=== PATIENT | female | born 1975 | race Caucasian/White ===

== ENCOUNTER 2016-08-21 21:17 | Emergency (ER) | payer BC, OTHER ==
[~2016-08-21] VITALS: Ht 162.6 cm; Wt 62.6 kg
[2016-08-21 21:21] VITALS: TEMP 37.4; Ht 162.6 cm; Wt 62.6 kg
[2016-08-21] MEDS ORDERED: SODIUM CHLORIDE 0.9% 1000ML 1,000 ML IV STA ×2 (21:39)
[2016-08-21] MEDS ORDERED: MoRPHine SULFATE 4 MG/ML 1 ML CARP\\VIAL IV STA (21:39)
[2016-08-21] MEDS ORDERED: ONDANSETRON INJ 2 MG/ML 2 ML VIAL IV STA (21:39)
[2016-08-21] MEDS ORDERED: BCPILLS PO (21:41)
[2016-08-21 22:00] VITALS: O2SAT 97
[2016-08-21 22:33] LABS: BASO % 0.2 %; BASO ABS # 0.04 K/uL (0-0.2); COMPLETE YES; EOS % 0.5 %; HEMATOCRIT 40.3 % (37-47); IG% 0.3 %; LYMPH % 6.4 %; LYMPH ABS # 1.35 K/uL (1.2-3.4); MEAN CELL VOLUME 94.6 fL (80-100); MEAN CORPUSCULAR HEMOGLOBIN 33.6 pg (25-34); MEAN CORPUSCULAR HGB CONC 35.5 g/dl (32-36); MEAN PLATELET VOLUME 9.6 fL (7.4-10.4); MONO % 12.1 %; NEUT % 80.5 %; PLATELET COUNT 290 K/uL (130-400); RED BLOOD COUNT 4.26 M/uL (4.2-5.4); WHITE BLOOD COUNT 21.04 K/uL (4.8-10.8)
[2016-08-21 22:34] LABS: URINE APPEARANCE CLEAR (CLEAR); URINE BILIRUBIN NEG (NEG); URINE COLOR YELLOW; URINE NITRITE NEG (NEG); URINE SPECIFIC GRAVITY 1.009 (1.000-1.030); UROBILINOGEN NEG (NEG); ZZUR CULT IF INDIC CLEAN CATCH NO
[2016-08-21 22:35] LABS: REVIEW REQ? NO
[2016-08-21 22:36] LABS: MANUAL MICROSCOPIC REQUIRED? NO
[2016-08-21 22:48] LABS: ALT/SGPT 20 U/L (12-78); BLOOD UREA NITROGEN 13 mg/dl (7-18); BUN/CREATININE RATIO 16.2 (10-20); CALCIUM 9.9 mg/dl (8.5-10.1); CARBON DIOXIDE 25 mmol/L (21-32); CHLORIDE 101 mmol/L (98-107); CREATININE 0.77 mg/dl (0.60-1.20); GLUCOSE 146 mg/dl (70-99); POTASSIUM 3.6 mmol/L (3.5-5.1); SODIUM 139 mmol/L (136-145)
[2016-08-21 22:51] LABS: ALKALINE PHOSPHATASE 55 U/L (45-117); AST/SGOT 19 U/L (15-37)
[2016-08-21 22:58] LABS: PREG INTERNAL NEGATIVE QC NEG CLEAR BACKGROUND; PREG INTERNAL POSITIVE QC POS CONTROL LINE
--- NOTE | 2016-08-21 23:00 | DIAGNOSTIC IMAGING REPORT ---
ABDOMINAL ULTRASOUND, RIGHT UPPER QUADRANT HISTORY: Right upper quadrant abdominal pain.. COMPARISON: None. FINDINGS: Pancreas: The pancreas demonstrates a normal echotexture. Liver: Unremarkable. Gallbladder: No gallbladder wall thickening. No gallstones. CBD: 5 mm. Right kidney: No hydronephrosis. IMPRESSION: No significant abnormality identified within the right upper quadrant. Electronically signed by: Hector Dalton M.D. 08/21/2016 10:58 PM Dictated Date/Time: 08/21/2016 10:57 PM
[2016-08-21] MEDS ORDERED: OPTIRAY 320 IV PRN (23:15)
[2016-08-22] MEDS ORDERED: METRONIDAZOLE 250 MG TAB PO STA ×2 (02:13→02:16)
[2016-08-22] MEDS ORDERED: CIPROFLOXACIN 500 MG TAB PO STA (02:13)
--- NOTE | 2016-08-22 02:15 | EMERGENCY ROOM VISIT NOTE ---
History First contact with patient: 21:35 Chief Complaint: ABDOMINAL PAIN Stated Complaint: RUQ ABDOMINAL PAIN, NAUSEA Nursing Triage Summary: patient with nausea and right sided abdominal pain for three days. with decreased appetite and general malaise. pain with standing and rebound tenderness with palpation. History of Present Illness The patient is a 41 year old female who presents to the Emergency Room with complaints of nausea and right upper abdominal pain for the past day. Symptoms started last night. She describes the pain as aching, ranging in severity 5 out of 10 worse with eating and better with rest. Patient denies chest pain, dyspnea, fever, chills, vomiting, diarrhea, back pain, urinary symptoms. Patient had a colonoscopy June 2016 and was normal per patient. Review of Systems See HPI for pertinent positives & negatives. A total of 10 systems reviewed and were otherwise negative. Past Medical/Surgical History Breast augmentation Social History Smoking Status: Former Smoker Drug Use: none Marital Status: Housing Status: lives with family Current/Historical Medications Scheduled Control Pills ( Control Pills), 1 TAB PO DAILY Ciprofloxacin Hcl (Cipro), 500 MG PO BID Metronidazole (Flagyl), 500 MG PO TID Allergies Coded Allergies: No Known Allergies (Unverified , 08/21/16) Physical Exam Vital Signs Date Time Temp Pulse Resp B/P Pulse Ox O2 Delivery O2 Flow Rate FiO2 08/22/16 02:15 96 08/22/16 01:35 95 18 110/71 98 Room Air 08/21/16 23:54 107 18 106/77 98 Room Air 08/21/16 23:01 96 20 132/86 99 Room Air 08/21/16 22:06 109 08/21/16 22:01 110 20 117/68 98 Room Air 08/21/16 22:00 97 Room Air 08/21/16 21:21 37.4 121 20 120/81 97 Physical Exam VITALS: Vitals are noted on the nurse's note and reviewed by myself. Vital signs stable. GENERAL: Pleasant female, in no acute distress, nondiaphoretic, well-developed well-nourished. SKIN: The skin was without rashes, erythema, edema, or bruising. There is no tenting of the skin. Capillary reflex less than 2 seconds. HEAD: Normocephalic atraumatic. EARS: External auditory canals clear, tympanic membranes pearly burns without erythema or effusion bilaterally. EYES: Pupils equal round and reactive to light and accommodation. Conjunctivae without injection, sclerae without icterus. Extraocular movements intact. NOSE: Patent, turbinates without inflammation or discharge. MOUTH: Mucous membranes moist. Pharynx without erythema or exudate. Uvula midline. Airway patent. Tongue does not deviate. NECK: Supple without nuchal rigidity. No lymphadenopathy. No thyromegaly. Cervical spine is nontender. No JVD. HEART: Regular rate and rhythm without murmurs gallops or rubs. LUNGS: Clear to auscultation bilaterally without wheezes, rales or rhonchi. No dullness to percussion. No retractions or accessory muscle use. ABDOMEN: Positive bowel sounds x 4. Normal tympanic percussion. Soft, tender to palpation right upper quadrant, without masses or organomegaly. No CVA tenderness. No guarding or rebound tenderness. MUSCULOSKELETAL: No muscle atrophy, erythema, or edema noted. NEURO: Patient was alert and oriented to person place and time. Normal sensation to light and sharp touch. No focal neurological deficits. Medical Decision & Procedures Laboratory Results 08/21/16 22:00 Red Blood Count 4.26, Mean Corpuscular Volume 94.6, Mean Corpuscular Hemoglobin 33.6, Mean Corpuscular Hemoglobin Concent 35.5, Mean Platelet Volume 9.6, Neutrophils (%) (Auto) 80.5, Lymphocytes (%) (Auto) 6.4, Monocytes (%) (Auto) 12.1, Eosinophils (%) (Auto) 0.5, Basophils (%) (Auto) 0.2, Neutrophils # (Auto ) 16.93, Lymphocytes # (Auto) 1.35, Monocytes # (Auto) 2.55, Eosinophils # (Auto ) 0.10, Basophils # (Auto) 0.04 08/21/16 22:00 Test 08/21/16 22:00 White Blood Count 21.04 K/uL (4.8-10.8) Red Blood Count 4.26 M/uL (4.2-5.4) Hemoglobin 14.3 g/dL (12.0-16.0) Hematocrit 40.3 % (37-47) Mean Corpuscular Volume 94.6 fL (80-100) Mean Corpuscular Hemoglobin 33.6 pg (25-34) Mean Corpuscular Hemoglobin Concent 35.5 g/dl (32-36) Platelet Count 290 K/uL (130-400) Mean Platelet Volume 9.6 fL (7.4-10.4) Neutrophils (%) (Auto) 80.5 % Lymphocytes (%) (Auto) 6.4 % Monocytes (%) (Auto) 12.1 % Eosinophils (%) (Auto) 0.5 % Basophils (%) (Auto) 0.2 % Neutrophils # (Auto) 16.93 K/uL (1.4-6.5) Lymphocytes # (Auto) 1.35 K/uL (1.2-3.4) Monocytes # (Auto) 2.55 K/uL (0.11-0.59) Eosinophils # (Auto) 0.10 K/uL (0-0.5) Basophils # (Auto) 0.04 K/uL (0-0.2) RDW Standard Deviation 41.8 fL (36.4-46.3) RDW Coefficient of Variation 12.2 % (11.5-14.5) Immature Granulocyte % (Auto) 0.3 % Immature Granulocyte # (Auto) 0.07 K/uL (0.00-0.02) Urine Color YELLOW Urine Appearance CLEAR (CLEAR) Urine pH 6.0 (4.5-7.5) Urine Specific [place] 1.009 (1.000-1.030) Urine Protein NEG (NEG) Urine Glucose (UA) NEG (NEG) Urine Ketones NEG (NEG) Urine Occult Blood NEG (NEG) Urine Nitrite NEG (NEG) Urine Bilirubin NEG (NEG) Urine Urobilinogen NEG (NEG) Urine Leukocyte Esterase NEG (NEG) Anion Gap 13.0 mmol/L (3-11) Est Creatinine Clear Calc Drug Dose 84.8 ml/min Estimated GFR () 112.7 Estimated GFR (Non- 97.3 BUN/Creatinine Ratio 16.2 (10-20) Calcium Level 9.9 mg/dl (8.5-10.1) Total Bilirubin 0.4 mg/dl (0.2-1) Direct Bilirubin < 0.1 mg/dl (0-0.2) Aspartate Amino Transf (AST/SGOT) 19 U/L (15-37) Alanine Aminotransferase (ALT/SGPT) 20 U/L (12-78) Alkaline Phosphatase 55 U/L (45-117) Total Protein 7.8 gm/dl (6.4-8.2) Albumin 3.9 gm/dl (3.4-5.0) Lipase 86 U/L (73-393) Human Chorionic Gonadotropin, Qual NEG (NEG) Medications Administered Medications (Trade) Dose Ordered Sig/Sarah Route Start Time Stop Time Status Last Admin Dose Admin Sodium Chloride 1,000 ml @ 999 mls/hr Q1H1M STAT IV 08/21/16 21:39 08/21/16 22:39 DC 08/21/16 21:39 999 MLS/HR Sodium Chloride (Nss 1000ml) 1,000 ml @ 200 mls/hr Q5H STAT IV 08/21/16 21:39 08/22/16 02:38 08/21/16 22:59 200 MLS/HR Ondansetron HCl (Zofran Inj) 4 mg NOW STAT IV 08/21/16 21:39 08/21/16 21:41 DC 08/21/16 22:18 4 MG Morphine Sulfate (MoRPHine SULFATE INJ) 4 mg NOW STAT IV 08/21/16 21:39 08/21/16 21:41 DC 08/21/16 22:18 4 MG Ciprofloxacin (Cipro Tab) 500 mg NOW STAT PO 08/22/16 02:13 08/22/16 02:14 DC 08/22/16 02:20 500 MG Metronidazole (Flagyl Tab) 500 mg NOW STAT PO 08/22/16 02:13 08/22/16 02:14 DC 08/22/16 02:21 500 MG ED Course Prior records/ancillary studies reviewed. Triage Nursing notes reviewed. Additional history obtained from family. The patient's history was concerning for abdominal pain. Differential diagnosis: Etiologies such as appendicitis, diverticulitis, PUD, biliary pathology, UTI, pancreatitis, obstruction, mesenteric ischemia, aortic pathology, infections, inflammatory bowel disease, renal colic, as well as others were entertained. Physical examination findings: As above. ER treatment provided: Morphine, Zofran, IV fluids On reassessment the patient felt better. Diagnostics interpreted by me: The labs revealed leukocytosis. Negative hCG mild hyperglycemia without DKA On reassessment patient started to have right lower quadrant abdominal pain so CT imaging was ordered Imaging studies: CT ABDOMEN & PELVIS: Normal appendix. Single ascending colon diverticulum with associated colonic wall thickening and surrounding inflammatory changes. Consistent with right-sided diverticulitis. No free air or abscess. Consider follow-up to exclude malignancy. Small hiatal hernia Bilateral breast implants partially visualized vaginal tampon Radiologist: Ade Bowles M.D. ABDOMINAL ULTRASOUND, RIGHT UPPER QUADRANT HISTORY: Right upper quadrant abdominal pain.. COMPARISON: None. FINDINGS: Pancreas: The pancreas demonstrates a normal echotexture. Liver: Unremarkable. Gallbladder: No gallbladder wall thickening. No gallstones. CBD: 5 mm. Right kidney: No hydronephrosis. IMPRESSION: No significant abnormality identified within the right upper quadrant. Electronically signed by: Hector Dalton M.D. Exam and history seem consistent with diverticulitis. Patient was started on antibiotics. She was well-appearing. She was not vomiting. She was afebrile and nontoxic. She had no free air. She was advised to take antibiotics as directed and to follow-up with family care in a few days or here in the ER sooner for high fevers, vomiting, lethargy, worsening signs or symptoms or as needed. Patient did request to leave. I felt this is reasonable.By the evaluation outlined above emergent etiologies such as PUD, biliary pathology , UTI, pancreatitis, obstruction, mesenteric ischemia, aortic pathology inflammatory bowel disease, renal colic, as well as others were deemed relatively unlikely. Patient was advised to follow back up with her GI doctor and family care DrLeigh for further evaluation and workup for her diverticulitis at such a young age. She just had a unremarkable colonoscopy per patient. This was done at [facility]. This is done by Dr. Gold. The pt informed about the findings as listed above. All questions were answered and pleased with the treatment. Return instructions were outlined and the patient was discharged in stable condition. Outpatient prescription management: Cipro, Flagyl Referral: The patient was referred back to their primary care physician for follow-up in 2 to 3 days for a recheck of the current condition. Case reviewed with my attending Medical Decision As above Impression Primary Impression: Diverticulitis Departure Information Dispostion Home / Self-Care Condition GOOD Prescriptions Metronidazole (Flagyl) 500 Mg Tab 500 MG PO TID for 13 Days, #39 TAB Prov: Gabrielle Mcmanus PA-C 08/22/16 Ciprofloxacin Hcl (CIPRO) 500 Mg Tab 500 MG PO BID for 13 Days, #26 TAB Prov: Gabrielle Mcmanus .DELROY 08/22/16 Referrals Ellen Maria M.D. (PCP) Patient Instructions A Signature Page Additional Instructions DO NOT drive, drink alcohol, operate machinery, or perform dangerous activities today. You were given medications in the ER that can affect your ability to safely function or operate a vehicle. Zofran 4 m tablet every 6 hours as needed for nausea or vomiting. Oxycodone (OxyIR) 5mg: Take 1-2 pills every four hours for breakthrough pain. Avoid alcohol, operating machinery or dangerous equipment, working on ladders or roofs, DRIVING, or situations where being under the influence may be dangerous. It is recommended to use an [id number]-[id number] stool softener such as Colace, 100mg twice daily while taking this medication to avoid constipation. Ciprofloxacin(Cipro) 500mg: Take one pill twice daily for 14 days for your bowel infection. All antibiotics can cause diarrhea. If this occurs and you feel worse or it does not resolve in 1-2 days follow up with your doctor or return to the Emergency Department as this could be signs of serious underlying problems. If you experience any pain in your tendons or any tendon injury return to the ER for re-evaluation. Any medication can cause an allergic reaction, stop the pills immediately and return to the ER for rash, hives, breathing difficulties, or swelling. Metronidazole(Flagyl) 500mg: Take one pill 3 times daily for 14 days for your bowel infection. DO NOT drink alcohol or take alcohol containing products with this medication. Any medication can cause an allergic reaction, stop the pills immediately and return to the ER for rash, hives, breathing difficulties, or swelling. Ibuprofen(Motrin, Advil) may be used for fever or pain. Use 600mg every six hours as needed. Take with food. Avoid using more than 2400mg in a 24 hour period. Do not use 2400mg per day for more than three consecutive days without physician direction. Prolonged inappropriate use can lead to stomach upset or ulcers. (AND/OR) Acetaminophen(Tylenol) may be used for fever or pain. Use 1000mg every six hours as needed. Avoid using more than 3000mg in a 24 hour period. Rest and drink plenty of fluids as tolerated. Slow sips of water or sports drinks are recommended instead of large amounts all at once. Continue current medications. Once your stomach is settled start with a clear liquid diet (jello, soup broth, etc.) and then advance as tolerated. You should avoid full, heavy meals for about 24 hrs from the time your symptoms resolved. Return to the ER immediately for worsening or persistent abdominal pain, vomiting, fevers, chest pains, difficulty breathing, black or bloody stools, worsening of your condition, or as needed. Follow up with your primary physician/deputy register of deeds in 2-3 days for a recheck of your current condition. Problem Qualifiers Primary Impression: Diverticulitis Diverticulitis site: large intestine Diverticulitis bleeding: without bleeding Diverticulitis complication: without perforation or abscess Qualified Codes: K57.32 - Diverticulitis of large intestine without perforation or abscess without bleeding
[2016-08-22] MEDS ORDERED: CIPR1TAB10 PO (02:16)
[2016-08-22] MEDS ORDERED: METR-163 PO (02:16)
[2016-08-22] MEDS ORDERED: EMPTY 8 DRAM VIAL ONE (02:28)
[2016-08-22] MEDS ORDERED: ONDANSETRON HOME PACK 4MG OD TAB PO ONE (02:30)
[2016-08-22] MEDS ORDERED: OXYCODONE IR HOME PACK PO ONE (02:30)
[2016-08-22] MEDS ORDERED: CIPROFLOXACIN 500MG HOME PACK PO ONE (02:30)
[2016-08-22 02:47] VITALS: BP 102/76; PULSE 81; O2SAT 98
--- NOTE | 2016-08-22 07:24 | DIAGNOSTIC IMAGING REPORT ---
CT SCAN OF THE ABDOMEN AND PELVIS WITH IV CONTRAST CLINICAL HISTORY: Right lower quadrant abdominal pain. COMPARISON STUDY: Abdominal ultrasound dated 08/21/2016. TECHNIQUE: Following the IV administration of 94 cc of Optiray 320, CT scan of the abdomen and pelvis is performed from the lung bases to the proximal femora. Images are reviewed in the axial, sagittal, and coronal planes. IV contrast was administered without complication. Automated dose control exposure was utilized. CT DOSE: 285.30 mGy.cm FINDINGS: Lung bases: The heart is normal in size and without pericardial effusion. The lung bases are clear noting dependent atelectasis. Bilateral breast implants are partially visualized. Liver: The contrast-enhanced liver is normal in size, contour, and attenuation. There is no intrahepatic biliary ductal dilatation. The hepatic veins and portal veins are patent. A 10 mm hypodensity in the right lobe just below the diaphragm assumes #64. This likely represents a small hemangioma when correlated with today's ultrasound. Gallbladder: Unremarkable. Spleen: Normal in size and attenuation. Pancreas: Unremarkable. Adrenal glands: Unremarkable. Kidneys: The contrast enhanced kidneys are normal in size and without hydronephrosis. The kidneys enhance symmetrically. Abdominal vasculature: The abdominal aorta is normal in course and caliber. Bowel: There is no bowel obstruction. There is mild to moderate colonic fecal retention. There is mild diverticulosis of the right colon. There is wall thickening with associated pericolonic inflammation and trace fluid seen involving the mid to distal ascending colon on axial image #199. The appearance is most consistent with acute diverticulitis. There is no evidence of diverticular abscess. The appendix is well-visualized and normal. Peritoneum: There is no intraperitoneal free air or abdominal ascites. Lymphadenopathy: None. Pelvic viscera: The bladder, uterus, and adnexa are normal as visualized. There are small bilateral ovarian follicles. A tampon is in place. Skeletal structures: No lytic or blastic lesions are seen. IMPRESSION: 1. Findings are most consistent with acute diverticulitis of the ascending colon. There is no evidence of abscess or intraperitoneal free air. Consider follow-up colonoscopy following treatment for further assessment of the right colon. 2. The appendix is well-visualized and normal, and is remote from the inflammatory process. Electronically signed by: Yandel Mae M.D. 08/22/2016 7:22 AM Dictated Date/Time: 08/22/2016 7:16 AM
== END 2016-08-22 02:48 | disposition home or self-care (01) ==
LOC: C.EDB 21:18 → C.EDA 08-22 02:48
DX: K57.32 Diverticulitis of large intestine without perforation or abscess without bleeding (principal); K44.9 Diaphragmatic hernia without obstruction or gangrene; Z87.891 Personal history of nicotine dependence